=== PATIENT | female | born 1990 | race Two or more races ===

== ENCOUNTER 2024-11-21 09:34 | Emergency (ER) | payer OTHER, SELFPAY ==
[2024-11-21 09:46] VITALS: BP 126/75
--- NOTE | 2024-11-21 11:53 | ED.GENMED ---
History of Present Illness
General
Chief Complaint: Musculo-Skeletal Complaint
Time Seen by Provider: 11/21/24 11:15
History of Present Illness
History of Present Illness:
Patient is a 34-year-old woman presenting to the emergency department with left arm pain. Patient states that the pain is mostly in her right wrist for the past 3 days. Intermittently radiates up to her collarbone. No traumatic injuries. No
swelling. 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 The pain is worse at nighttime and worse with movement. She does have history of blood clot in her leg that was extensive requiring surgery. I was related to her control which she is no longer on.
She does state that the pain is very similar to when she had the blood clot. No swelling. No redness. No numbness tingling.
Phy Exam
Physical Exam
Physical Exam:
GENERAL: in no acute distress
HEENT: normocephalic, extraocular movements intact, moist oral mucosa
NECK: normal inspection
RESPIRATORY: no respiratory distress, clear to auscultation bilaterally
CARDIOVASCULAR: regular rate and rhythm
ABDOMEN/: soft, non-distended, non-tender to palpation, no rebound or guarding
EXTREMITIES: Left extremity non-tender, no edema/swelling, positive Tinel sign, 2+ radial pulse, normal cap refill
NEUROLOGIC: awake and alert, moves all extremities
SKIN: warm
Course
Orders/Labs/Results
Orders:
Orders
11/21/24 11:41
US Periph Venous UPPER Ext LT Urgent
Comment:
Reason For Exam: arm pain, hx of DVT
Vital Signs
Initial and Last Documented VS:
Initial Vital Signs
Temp Pulse Resp BP Pulse Ox
98.3 F 76 16 126/75 100
11/21/24 09:46 11/21/24 09:46 11/21/24 09:46 11/21/24 09:46 11/21/24 09:46
Last Documented Vital Signs
Temp Pulse Resp BP Pulse Ox
98.3 F 76 16 126/75 100
11/21/24 09:46 11/21/24 09:46 11/21/24 09:46 11/21/24 09:46 11/21/24 09:46
MDM/Problems Addressed
Differential Diagnosis Includes:
Patient is a 34-year-old woman presenting to the emergency department with atraumatic left wrist pain. Vitals unremarkable and exam does show positive Tinel sign and no obvious swelling redness. Differential consists carpal tunnel versus MSK pain
versus overuse injury. Could be DVT given patient's history. After shared decision making we will proceed with DVT study. If negative will discharge with wrist splint and orthopedic follow-up
DVT study negative. Patient education on tendinopathy's/MSK pain. Will give wrist splint. She will follow-up with orthopedics as needed. Strict return precautions given.
*Critical Care Note
Total Time (30-74mins, 75-104mins- exclusive of procedures): Not Applicable
ED Attending Note
-
Portions of this chart may have been created with voice recognition software.� Occasional wrong word or��sound alike� substitutions may have occurred due to the inherent limitations of voice recognition software.
Discharge Plan
Departure
Patient Disposition: Home (Routine Discharge)
Date of Disposition: 11/21/24
Time of Disposition: 12:38
Patient with high blood pressure during this ER visit?: No
Discharge Problem:
Left wrist pain
Instructions: de Quervain tendinopathy, Carpal Tunnel Exercises
Referrals:
Dario Gallo MD [Active] - Call in 1-3 days for appt
NONE,* [Family Provider] -
Activity Restrictions/Additional Instructions:
Please use the wrist splint as able to during the daytime. Please also complete range of motion exercises as noted in the education packets. Please try to wear at nighttime as it will help with the carpal tunnel pain.
We discussed pain medications:
You may take Tylenol (also known as Acetaminophen) for pain.
You may take 1000mg Acetaminophen (two extra-strength tablets) per dose, which should be taken every 6-8 hours, or three times a day.
If you have normal strength Tylenol, you can take 650mg (two normal strength tablets) every 4-6 hours.
Do not take more than 3,000mg (3 grams) of Acetaminophen per day.
Never take more than as directed on the bottle.
You may also take Ibuprofen (also known as Motrin or Advil). If taking with Tylenol, alternate and take between dosing.
You may take 400-800mg of Ibuprofen per dose, which should be taken every 6-8 hours.
Do not take more than 3200mg (3.2 grams) of Ibuprofen per day.
Please see your primary care doctor soon to be reevaluated and to make sure that you are improving. We have included information about establishing care with a doctor if you do not have one.
We talked about your evaluation, diagnosis, and treatment in the Emergency Department today. You must see your primary doctor for recheck and followup care in order to evaluate your progress or any changes. Have your doctor recheck the test
results/information from the ED visit. As discussed, RETURN to the ED if you develop worsening/changing symptoms or have no improvement in symptoms after the treatments provided.
Discharge Date and Time
Print Language: ARABIC
[2024-11-21 13:12] VITALS: BP 119/75
== END 2024-11-21 13:14 | disposition home or self-care (01) ==
LOC: EMR 09:34
PROVIDERS: EMERGENCY PHYSICIAN Student in an Organized Health Care Education/Training Program
DX: M25.532 Pain in left wrist (principal); Z86.718 Personal history of other venous thrombosis and embolism
CPT/HCPCS: 99284; 93971

== ENCOUNTER 2025-02-16 11:54 | Emergency (ER) | payer OTHER, SELFPAY ==
[2025-02-16 12:24] VITALS: BP 122/87
[2025-02-16 12:51] LABS: Urine Character Clear (Clear)
[2025-02-16 12:56] LABS: Hematocrit 32.5 % (37.0-47.0); Hemoglobin 9.2 g/dL (12.0-16.0); Mean Corp Hgb Conc. 28.3 g/dL (33.0-37.0); Mean Corpuscular Volume 70.7 fL (81.0-99.0); Nucleated Red Blood Cells % 0 %; Platelet Count 233 10^3/uL (130-400); Red Cell Dist. Width 17.2 % (11.5-14.5)
[2025-02-16 12:59] LABS: Urine Red Blood Cell 0-2 /HPF (0-2); Urine Squamous Cell >30 /LPF (Few)
[2025-02-16 13:19] LABS: ALT (SGPT) 14 U/L (0-35); AST (SGOT) 22 U/L (14-36); Albumin 4.4 g/dl (3.5-5.0); Alkaline Phosphatase 40 U/L (38-126); Blood Urea Nitrogen 12 mg/dl (7-17); Calcium 8.7 mg/dl (8.4-10.2); Carbon Dioxide 25 mmol/L (22-30); Chloride 107 mmol/L (98-107); Glucose 100 mg/dl (70-99); Potassium 4.2 mmol/L (3.5-5.1); Sodium 139 mmol/L (135-145); Total Protein 7.5 g/dl (6.3-8.2); eGFR > 60.00
--- NOTE | 2025-02-16 14:02 | ED.GENMED ---
History of Present Illness
General
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
Source: patient
Exam Limitations: none
Time Seen by Provider: 02/16/25 13:41
History of Present Illness
History of Present Illness:
35-year-old otherwise healthy female presents complaining of lower pelvic pain heavy menstrual cycles and pain with intercourse. She states she has had polyps removed in the past from her cervix. Please note the history and physical were performed
with [place]-speaking pre assembly wirer in the room. No chest pain or shortness of breath. She does have a history of anemia associated with her heavy periods.
Phy Exam
Physical Exam
Physical Exam:
General: Well-appearing female in no acute distress
HEENT: Normocephalic
Heart: Regular rate and rhythm
Lungs: Clear
Abdomen soft mild tenderness to the suprapubic region. No guarding or rebound
Extremities: No cyanosis
Course
Orders/Labs/Results
Orders:
Orders
02/16/25 12:31
Electrocardiogram (*1) Urgent
Reason for Study: Vertigo / Dizzy
02/16/25 12:33
Complete Blood Count/With Diff Urgent
Comprehensive Metabolic Panel Urgent
02/16/25 12:42
Urine Culture Reflexed from UA [Urinalysis Reflex To Culture] Urgent
Date Specimen was Collected: 02/16/25
Time Specimen was Collected: 12:38
Urine Microscopic Reflex Cult Urgent
Urine Culture Urgent
GURMEET Source: U
Specimen Description:
Date Specimen was Collected: 02/16/25
Time Specimen was Collected: 12:38
02/16/25 13:56
US Pelvis W Transvag Combined Urgent
Comment:
Reason For Exam: pelvic pain
Abnormal Lab Results
02/16/25 02/16/25
12:33 12:42
WBC 4.2 L 10^3/uL
(4.8-10.8)
Hgb 9.2 L g/dL
(12.0-16.0)
Hct 32.5 L %
(37.0-47.0)
MCV 70.7 L fL
(81.0-99.0)
MCH 20.0 L pg
(27.0-31.0)
MCHC 28.3 L g/dL
(33.0-37.0)
RDW 17.2 H %
(11.5-14.5)
Monocytes % 12.4 H %
(1.7-9.3)
Glucose 100 H mg/dl
(70-99)
Ur Occult Blood Reflex 1+ A
(Negative)
Leukocyte Esterase Rfl 3+ A
(Negative)
Urine Bacteria (Reflex) Few A
(Negative)
Urine Albumin (Reflex) 1+ A
(Neg - Trace)
02/16/25 12:33
02/16/25 12:33
Vital Signs
Initial and Last Documented VS:
Initial Vital Signs
Temp Pulse Resp BP Pulse Ox
98.3 F 80 16 122/87 100
02/16/25 12:24 02/16/25 12:24 02/16/25 12:24 02/16/25 12:24 02/16/25 12:24
Last Documented Vital Signs
Temp Pulse Resp BP Pulse Ox
98.3 F 80 16 122/87 100
02/16/25 12:24 02/16/25 12:24 02/16/25 12:24 02/16/25 12:24 02/16/25 14:04
MDM/Problems Addressed
Differential Diagnosis Includes:
Pelvic pain with irregular bleeding. Question fibroid versus dysfunctional uterine bleeding versus ovarian cyst
Labs demonstrate hemoglobin 9.2. When patient told she was anemic she states this is not new for her. Will obtain ultrasound of the pelvis
*Pulse Oximetry
SaO2: 100
Oxygen Mode of Delivery: Room air
Patient hypoxic: no
*Critical Care Note
Total Time (30-74mins, 75-104mins- exclusive of procedures): Not Applicable
Update Note
Update Note:
Family came out of the room while waiting for the ultrasound report, they have to leave to get to an important meeting and wished to be discharged. Per the floor technician's note from the ultrasound, there is blood flow to both ovaries. However the
official read is pending. They were aware of this. We will call them for any abnormal results otherwise. Would recommend she follow-up with gynecology
ED Attending Note
-
Portions of this chart may have been created with voice recognition software.� Occasional wrong word or��sound alike� substitutions may have occurred due to the inherent limitations of voice recognition software.
Discharge Plan
Departure
Patient Disposition: Home (Routine Discharge)
Date of Disposition: 02/16/25
Time of Disposition: 15:59
Patient with high blood pressure during this ER visit?: No
Discharge Problem:
Bleeding, uterine, dysfunctional
Referrals:
Simin Murphy MD [Active, Gynecology]
NONE,* [Family Provider, Internal Medicine]
Activity Restrictions/Additional Instructions:
Please return here for worsening symptoms otherwise consider following up with gynecology
Interventions
Interventions:
*Risk Screen - Suicide Last Done: 02/16/25 12:24
*General Assessment Last Done: 02/16/25 12:24
*Neglect/Abuse Screening Last Done: 02/16/25 12:24
*ED- Fall Risk Assessment Last Done: 02/16/25 12:24
*ED COVID-19 Vaccine History Last Done: 02/16/25 12:24
ED-Female Genitourinary Assessment Last Done: 02/16/25 13:00
Discharge Date and Time
Print Language: EQUATORIAL GUINEAN
== END 2025-02-16 16:05 | disposition home or self-care (01) ==
LOC: EMR 11:54
PROVIDERS: Emergency Medicine; EMERGENCY PHYSICIAN Emergency Medicine
DX: N93.8 Other specified abnormal uterine and vaginal bleeding (principal); Z86.018 Personal history of other benign neoplasm
CPT/HCPCS: 99284; 76830; 76856; 80053; 81003; 81015; 85025; 87086